=== PATIENT | male | born 1975 | race Caucasian/White ===

== ENCOUNTER 2020-10-20 20:59 | Emergency (ER) | payer OTHER, SELFPAY ==
--- NOTE | 2020-10-20 21:03 | ED.PSYCH ---
HPI - Psych General Chief Complaint: ETOH/Substance Use Stated Complaint: crisis Time Seen by Provider: 10/20/20 21:00 Source: patient and EMS Mode of arrival: EMS Limitations: no limitations History of Present Illness MD complaint: feels depressed and substance abuse Onset (ago): month(s) (3) Duration: getting worse History of same: Yes Relieving factors: none Exacerbating factors: drug use Context: recent drug abuse Associated psychiatric symptoms: depression Associated symptoms: denies other symptoms Treatments prior to arrival: none Related Data Allergies Allergy/AdvReac Type Severity Reaction Status Date / Time No Known Allergies Allergy Mild NONE Unverified 03/08/20 15:15 Review of Systems Review of Systems: Constitutional : No Fever, No Chills ENT/Mouth : No Ear Pain, No Nasal Congestion, No sore throat Eyes: No Eye Pain, No Swelling, No Redness Cardiovascular : No Chest Pain, No SOB Respiratory : No Cough, No Sputum, No Dyspnea Gastrointestinal : No Nausea, No Vomiting, No Diarrhea, No Hematochezia, No Melena Genitourinary : No Dysuria, No Urinary Frequency, No Hematuria Musculoskeletal : No Myalgias Skin : No Skin Lesions, No rash Neuro : No Weakness, No Numbness, No Paresthesias, No Dizziness, No Headache Psych : positive Anxiety, positive Depression, no SI/HI Heme/Lymph: No Lymphadenopathy Endocrine : No Polyuria, No Polydipsia All other systems reviewed and are negative [facility] Past Medical History Attestation statement: The following information was validated with the patient. Medical History No active medical problems Social History Social History (Updated 10/20/20 @ 21:20 by Ashwini Lay DO) Smoking Status: Current every day smoker Use of substances other than those prescribed or required for medical reasons: Yes Substance Use Type: Crack/Cocaine Advance Directives: No Physical Exam Vital Signs: Vital Signs: Last Vital Signs Temp 98.5 F 10/20/20 21: Pulse 116 H 10/20/20 21:22 Resp 18 10/20/20 21:22 BP 151/93 H 10/20/20 21:22 Pulse Ox 97 10/20/20 21:22 Body Mass Index 29.7 Appearance: Alert. Oriented X3. No acute distress. Eyes: Pupils equal, round and reactive to light. ENT: Pharynx normal. Neck: Normal inspection. Neck supple. CVS: Normal heart rate and rhythm. Pulses normal. Respiratory: No respiratory distress. Breath sounds normal. Abdomen: Soft and non-tender. Skin: Skin warm and dry. Normal skin color. Normal skin turgor. Extremities: No lower extremity edema. No calf ttp Neuro: Oriented X 3. No motor deficit. No sensory deficit. Psych: pos anxiety/depression, no SI/HI Course Course Course Narrative: CARE team referral to [facility], taj - can be DC at this time outpatient follow up MDM - Psych MDM Narrative Medical decision making narrative: 44 yo male with recent increasing use of cocaine and smoking crack - comes in for help with detox, will obtain DIDI and refer to care team Lab Data Labs: Lab Results 10/20/20 10/20/20 Range/Units 21:29 21:43 Urine Opiates Screen Not Detected (Not Detect) Ur Barbiturates Screen Not Detected (Not Detect) Ur Phencyclidine Scrn Not Detected (Not Detect) Ur Amphetamines Screen Not Detected (Not Detect) U Benzodiazepines Scrn Not Detected (Not Detect) Urine Cocaine Screen POSITIVE H (Not Detect) U Marijuana (THC) Screen Not Detected (Not Detect) COVID-19 ([facility]ELIC) Negative (Negative) COVID-19 Clin Com See Note Discharge Plan Discharge Clinical Impression: Cocaine abuse Patient Disposition: Home, Self-Care Instructions: Cocaine Abuse (ED) Additional Instructions: return to ED for any worsening symptoms or concerns Referrals: Rachael Salas APRN [Advanced Practice Nurse] - 2 days ( ANY PROVIDER)
[2020-10-20 21:22] VITALS: BP 151/93; BP 154/81; PULSE 116; PULSE 96; RESP 18; TEMP 36.9; O2SAT 97; O2SAT 98; BMI 29.7
[2020-10-20 21:57] LABS: COVID-19 Test Negative (Negative); IDNOW Serial# 9DD0AD1C
[2020-10-20 22:13] LABS: Amphetamine Screen Urine Not Detected (Not Detect); Barbiturates, Urine Not Detected (Not Detect); Benzodiazepines Screen Urine Not Detected (Not Detect); Cannabinoid Screen Urine Not Detected (Not Detect); Cocaine Screen Urine POSITIVE (Not Detect); Opiate Screen Urine Not Detected (Not Detect); Phencyclidine Screen Urine Not Detected (Not Detect)
--- NOTE | 2020-10-20 22:42 | MHC.CARE ---
CARE team consult requested for 44 year old male who self presented to ED seeking assessment and help for ongoing symptoms of depression and crack cocaine use. Pt reported that he relapse in June and has since been using on weekends. Pt stated that he works 50 hours per week, goes hiking and mountain biking, and stays busy doing activities with his children, however he can't stop thinking about it (crack cocaine) and he the guilt he feels is too much. Pt reported that he previously worked with a therapist through [facility] for two years, though stopped treatment approx. 8 months ago because he didn't feel that sessions via telephone were helpful (in person sessions halted at the beginning of cov- pandemic). When pt disengaged in therapy he also lost access to the psychiatrist who was prescribing his medications, so he has also been off his medications for about the same amount of time. Pt denied experiencing any thoughts of suicide or urges to harm self or others and denied recent history of such, however feels that his depression is being worsened by his crack cocaine use and wants to stop. This mortgage loan underwriter recommended that pt schedule an appt with his PCP (Olivia Estrada at [facility]) to discuss her level of comfort with prescribing the medications that pt had been prescribed through [facility] (wellbutrin and vyvanse). Pt stated that he had called [facility] to get back into treatment, learned that his previous therapist is retiring, and has not heard back from the clinic since. Pt was provided with the name and contact info for 4 local private practice therapists who accept pt's insurance ([employer]) and a referral will be completed for treatment at [facility]. This mortgage loan underwriter consulted with ED physician re: recommendations and is agreement with plan for discharge home.
== END 2020-10-20 23:09 | disposition home or self-care (01) ==
PROVIDERS: Emergency Provider Emergency Medicine; PCP Internal Medicine
DX: F33.1 Major depressive disorder, recurrent, moderate (principal); F14.10 Cocaine abuse, uncomplicated; F17.200 Nicotine dependence, unspecified, uncomplicated; Z71.6 Tobacco abuse counseling; Z20.822 Contact with and (suspected) exposure to COVID-19
CPT/HCPCS: 36415; 80307; 87635; 99284

== ENCOUNTER 2020-11-14 16:12 | Inpatient (IN) | payer OTHER, SELFPAY ==
--- NOTE | 2020-11-14 | ECG_ITS ---
Test Reason : MEDICAL CLEAR Blood Pressure : / mmHG Vent. Rate : 075 BPM Atrial Rate : 075 BPM P-R Int : 168 ms QRS Dur : 104 ms QT Int : 378 ms P-R-T Axes : 046 -32 016 degrees QTc Int : 422 ms Normal sinus rhythm Left axis deviation RSR' or QR pattern in V1 suggests right ventricular conduction delay Abnormal ECG When compared with ECG of 17-MAY-2017 16:53, RSR' pattern in V1 is now Present Referred By: Luis Oliva Electronically Signed By:DELBERT OWENS
[2020-11-14 16:35] VITALS: BP 160/80; BP 166/103; PULSE 120; PULSE 125; RESP 18; TEMP 36.6; O2SAT 97; O2SAT 98; BMI 29.6
[2020-11-14 16:57] VITALS: BP 166/103; PULSE 120; RESP 17; TEMP 36.6; O2SAT 97
--- NOTE | 2020-11-14 17:40 | PC.NURSE ---
Pt's called and stated that earlier this week PT attempted to hang himself in their home with a pair of pants. She stated that he was blue in the face but conscious. PT stated that he would not let her call am ambulance at that time. She stated that he frequently makes SI statements and will disappear for days at a time. - Malorie - [phone] PT's mother came to visit and also reported that PT attempted to hang himself a few days ago, she stated that she is very concerned about his mental health. Mom - Sarah [phone] (home) [phone] (cell)
[2020-11-14 19:11] LABS: MANUAL DIFF FLAG NO
[2020-11-14 19:13] LABS: Basophils Percent Auto 0.2 % (0-2); Eosinophils Percent Auto 0.1 % (0-4); Hemoglobin 15.4 g/dl (14.0-18.0); Imm Gran Abs Auto 0.06 X10*3/uL (0.00-0.03); Imm Gran Pct Auto 0.5 % (0.0-0.4); Lymphocytes Absolute Auto 1.6 X10*3/uL (1.2-4.9); Lymphocytes Percent Auto 12.7 % (20-40); Mean Corpuscular HGB Conc 33.5 g/dl (31.0-36.0); Mean Corpuscular Hemoglobin 30.4 pg (27.0-33.0); Mean Corpuscular Volume 90.9 fL (80-98); Mean Platelet Volume 10.3 fL (9.4-12.4); Monocytes Absolute Auto 0.9 X10*3/uL (0.1-1.2); Monocytes Percent Auto 7.2 % (2-11); Neutrophils Percent Auto 79.3 % (45-73); Platelet Count 236 X10*3/uL (160-400); Red Blood Count 5.06 X10*6/uL (4.60-5.80); Red Cell Distribution Width 14.2 % (11.0-16.0); White Blood Count 12.6 X10*3/uL (4.8-10.8)
[2020-11-14 19:28] LABS: COVID-19 Test Negative (Negative); IDNOW Serial# 08D9AD1C
--- NOTE | 2020-11-14 19:33 | PC.NURSE ---
Patient just got assessed by Care Team, disposition is Section 12 Inpatient Bed Search, patient is on phone currently, no distress reported, will continue to monitor.
[2020-11-14 19:37] LABS: Ethanol < 10 mg/dL
[2020-11-14 19:39] LABS: Alanine Aminotransferase 50 U/L (0-40); Albumin Level 4.2 g/dL (3.5-5.0); Alkaline Phosphatase 37 U/L (39-117); Anion Gap 13 (12-20); Aspartate Amino Transferase 38 U/L (5-37); Bilirubin Direct 0.3 mg/dL (0.0-0.5); Bilirubin Total 0.7 mg/dL (0.0-1.0); Blood Urea Nitrogen 16 mg/dL (9-16); Calcium 9.2 mg/dL (8.4-10.2); Carbon Dioxide 23 mmol/L (22-29); Chloride 106 mmol/L (96-108); Creatinine Clr Calc Pharmacy 63.9; Estimated Glomerular Filt Rate 48; Glucose Random 102 mg/dL (60-115); Potassium 4.2 mmol/L (3.3-5.1); Sodium 138 mmol/L (135-145); Total Protein 6.8 g/dL (6.5-8.0)
--- NOTE | 2020-11-14 19:44 | ED_ITS ---
HPI - Psych General Chief Complaint: Psychiatric Symptoms Stated Complaint: SI,SUBSTANCE ABUSE Time Seen by Provider: 11/14/20 19:53 Source: patient Mode of arrival: ambulatory Limitations: no limitations History of Present Illness HPI Narrative: Patient presents to ED for worsening depression and suicidal thoughts. Patient states life is not getting better. Patient states he is to dependent on cocaine. Patient admits to suicide attempt yesterday. MD complaint: suicidal ideation Related Data Home Medications Medication Instructions Recorded Confirmed bupropion HCl 1 tab PO DAILY 11/14/20 11/14/20 hydroxyzine HCl 1 tab PO DAILY 11/14/20 11/14/20 topiramate 1 tab PO BID 11/14/20 11/14/20 trazodone 1 tab PO BEDTIME 11/14/20 11/14/20 Allergies Allergy/AdvReac Type Severity Reaction Status Date / Time No Known Allergies Allergy Mild NONE Unverified 03/08/20 15:15 Review of Systems Review of Systems: Yes all other systems are reviewed and are negative Constitutional: Constitutional: Reports as per HPI and Reports no additional constitutional complaints Eyes: Eyes: Reports as per HPI and Reports no additional eye complaints ENT: Reports system reviewed and no additional complaints, except as documented and Reports as per HPI Cardiovascular: Cardiovascular: Reports as per HPI and Reports no additional cardiovascular complaints Respiratory: Respiratory: Reports as per HPI and Reports no additional respiratory complaints Gastrointestinal: Gastrointestinal: Reports as per HPI and Reports no additional gastrointestinal complaints Genitourinary: Genitourinary: Reports no additional male genitourinary co mplaints and Reports as per HPI Musculoskeletal: Musculoskeletal: Reports no additional musculoskeletal complaints and Reports as per HPI Neurologic: Reports system reviewed and no additional complaints, except as documented and Reports as per HPI Psychiatric: Psychiatric: Reports no additional psychiatric complaints, Reports as per HPI, Reports depression and Reports suicidal ideation [facility] Past Medical History Medical History No active medical problems Social History Social History (Updated 10/20/20 @ 21:20 by Ashwini Lay DO) Alcohol intake: current Alcohol intake frequency: 3 or more drinks per day Patient Tobacco Use Status: Current everyday Tobacco user Smoked in Last 30 Days: Yes Use of substances other than those prescribed or required for medical reasons: Yes Substance Use Type: Crack/Cocaine Last Used Substance: Hours (ago) Advance Directives: No Advance Directives Information Provided: No Healthcare Proxy: No Guardian: No Physical Exam Vital Signs: Vital Signs: Last Vital Signs Temp 97.6 F 11/14/20 19:51 Pulse 83 11/14/20 19:51 Resp 14 11/14/20 19:51 BP 135/87 11/14/20 19:51 Pulse Ox 97 11/14/20 19:51 Body Mass Index 29.6 Const: General: cooperative, healthy appearing, comfortable, no acute distress, well developed, alert and awake Orientation/consciousness: patient oriented x3 HENMT: Head: Yes normal to inspection, Yes No palpable skull fracture present, Yes normocephalic and Yes atraumatic Eyes: General: appearance normal, both eyes and all related structures Neck: Neck: Yes normal visual inspection, Yes full ROM, Yes no lymphadenopathy, Yes no meningeal signs, Yes trachea midline, Yes supple and No tender Chest: Chest palpation & inspection: normal inspection of the chest and normal palpation of entire chest wall Resp: Effort & Inspection: normal respiratory effort and able to speak in complete sentences Auscultation: clear to auscultation bilaterally Cardio: Jugular venous distension: no JVD Heart sounds: S1 normal heart sound present and S2 normal heart sound present GI: Inspection: Yes normal to inspection and No abdominal wall ecchymosis Palpation (GI): Soft to palpation, not firm, nontender, no guarding and not rigid : General: No CVA tenderness and Yes no CVA tenderness Back/Spine/Pelvis: Back: no CVA tenderness, No CVA tenderness and No back tenderness Skin: General skin exam: no rashes or lesions noted and elasticity normal Neuro: General: patient oriented x3, no meningeal signs and CN's II-XI intact bilaterally Cranial nerves: Yes CN's II-XII intact bilaterally Extrem: General: Yes normal to inspection and Yes full ROM Psych: Appearance: grossly normal, well kempt and not disheveled Course Course Course Narrative: Patient to have basic labs Reevaluation(s) Reevaluation #1: Patient was evaluated by care team consulted Lani who recommends patient be admitted for inpatient. She states patient family caught him yesterday trying to hang himself in the basement. Patient's father by similar action at the same age as patient is presently. Patient's Section [address] [facility] - Psych Lab Data Result diagrams: 11/14/20 19:04 11/14/20 19:04 Labs: Lab Results 11/14/20 11/14/20 11/14/20 Range/Units 19:04 19:04 19:04 WBC 12.6 H (4.8-10.8) X10*3/uL RBC 5.06 (4.60-5.80) X10*6/uL Hgb 15.4 (14.0-18.0) g/dl Hct 46.0 (42-52) % MCV 90.9 (80-98) fL MCH 30.4 (27.0-33.0) pg MCHC 33.5 (31.0-36.0) g/dl RDW 14.2 (11.0-16.0) % Plt Count 236 (160-400) X10*3/uL MPV 10.3 (9.4-12.4) fL Immature Gran % (Auto) 0.5 H (0.0-0.4) % Neut % (Auto) 79.3 H (45-73) % Lymph % (Auto) 12.7 L (20-40) % [place] % (Auto) 7.2 (2-11) % Eos % (Auto) 0.1 (0-4) % Baso % (Auto) 0.2 (0-2) % Lymph # (Auto) 1.6 (1.2-4.9) X10*3/uL [place] # (Auto) 0.9 (0.1-1.2) X10*3/uL Eos # (Auto) 0.0 (0.0-0.4) X10*3/uL Baso # (Auto) 0.0 (0.0-0.2) X10*3/uL Abs Immat Gran (auto) 0.06 H (0.00-0.03) X10*3/uL Absolute Neuts (auto) 10.0 H (2.0-8.3) X10*3/uL Absolute Nucleated RBC 0.000 (0.0-0.012) X10*3/uL Nucleated RBC % (auto) 0.0 (0.0-0.2) /100WBC Sodium 138 (135-145) mmol/L Potassium 4.2 (3.3-5.1) mmol/L Chloride 106 (96-108) mmol/L Carbon Dioxide 23 (22-29) mmol/L Anion Gap 13 (12-20) BUN 16 (9-16) mg/dL Creatinine 1.56 H (0.5-1.4) mg/dL Estim Creat Clear Calc 63.9 Estimated GFR 48 Random Glucose 102 (60-115) mg/dL Calcium 9.2 (8.4-10.2) mg/dL Total Bilirubin 0.7 (0.0-1.0) mg/dL Direct Bilirubin 0.3 (0.0-0.5) mg/dL AST 38 H (5-37) U/L ALT 50 H (0-40) U/L Alkaline Phosphatase 37 L (39-117) U/L Total Protein 6.8 (6.5-8.0) g/dL Albumin 4.2 (3.5-5.0) g/dL Urine Opiates Screen (Not Detect) Ur Barbiturates Screen (Not Detect) Ur Phencyclidine Scrn (Not Detect) Ur Amphetamines Screen (Not Detect) U Benzodiazepines Scrn (Not Detect) Urine Cocaine Screen (Not Detect) U Marijuana (THC) Screen (Not Detect) Ethyl Alcohol < 10 mg/dL COVID-19 ([facility]ELIC) (Negative) COVID-19 Clin Com 11/14/20 11/14/20 Range/Units 19:04 19:21 WBC (4.8-10.8) X10*3/uL RBC (4.60-5.80) X10*6/uL Hgb (14.0-18.0) g/dl Hct (42-52) % MCV (80-98) fL MCH (27.0-33.0) pg MCHC (31.0-36.0) g/dl RDW (11.0-16.0) % Plt Count (160-400) X10*3/uL MPV (9.4-12.4) fL Immature Gran % (Auto) (0.0-0.4) % Neut % (Auto) (45-73) % Lymph % (Auto) (20-40) % [place] % (Auto) (2-11) % Eos % (Auto) (0-4) % Baso % (Auto) (0-2) % Lymph # (Auto) (1.2-4.9) X10*3/uL [place] # (Auto) (0.1-1.2) X10*3/uL Eos # (Auto) (0.0-0.4) X10*3/uL Baso # (Auto) (0.0-0.2) X10*3/uL Abs Immat Gran (auto) (0.00-0.03) X10*3/uL Absolute Neuts (auto) (2.0-8.3) X10*3/uL Absolute Nucleated RBC (0.0-0.012) X10*3/uL Nucleated RBC % (auto) (0.0-0.2) /100WBC Sodium (135-145) mmol/L Potassium (3.3-5.1) mmol/L Chloride (96-108) mmol/L Carbon Dioxide (22-29) mmol/L Anion Gap (12-20) BUN (9-16) mg/dL Creatinine (0.5-1.4) mg/dL Estim Creat Clear Calc Estimated GFR Random Glucose (60-115) mg/dL Calcium (8.4-10.2) mg/dL Total Bilirubin (0.0-1.0) mg/dL Direct Bilirubin (0.0-0.5) mg/dL AST (5-37) U/L ALT (0-40) U/L Alkaline Phosphatase (39-117) U/L Total Protein (6.5-8.0) g/dL Albumin (3.5-5.0) g/dL Urine Opiates Screen Not Detected (Not Detect) Ur Barbiturates Screen Not Detected (Not Detect) Ur Phencyclidine Scrn Not Detected (Not Detect) Ur Amphetamines Screen Not Detected (Not Detect) U Benzodiazepines Scrn POSITIVE H (Not Detect) Urine Cocaine Screen POSITIVE H (Not Detect) U Marijuana (THC) Screen Not Detected (Not Detect) Ethyl Alcohol mg/dL COVID-19 ([facility]ELIC) Negative (Negative) COVID-19 Clin Com See Note Discharge Plan Discharge Clinical Impression: Depression Patient Disposition: Admitted As Inpatient Interventions: Admission Worksheet (ED) Last Done: 11/14/20 23:11
[2020-11-14 19:51] VITALS: BP 135/87; PULSE 83; RESP 14; TEMP 36.4; O2SAT 97
[2020-11-14] MEDS: buPROPion HCl XL 300 MG TAB.ER.24H PO (19:58)
[2020-11-14] MEDS: hydrOXYzine HCL 25 MG TABLET PO (19:58)
[2020-11-14 20:01] LABS: Amphetamine Screen Urine Not Detected (Not Detect); Barbiturates, Urine Not Detected (Not Detect); Benzodiazepines Screen Urine POSITIVE (Not Detect); Cannabinoid Screen Urine Not Detected (Not Detect); Cocaine Screen Urine POSITIVE (Not Detect); Opiate Screen Urine Not Detected (Not Detect); Phencyclidine Screen Urine Not Detected (Not Detect)
[2020-11-14] MEDS: LORazepam 1 MG TABLET 2 MG PO (20:04)
[2020-11-14] MEDS: Topiramate 25 MG TABLET PO (20:04)
[2020-11-15 00:10] VITALS: BP 130/78; PULSE 82; RESP 18; TEMP 36.6; O2SAT 98
[2020-11-15] MEDS: hydrOXYzine HCL 25 MG TABLET PO ×2 (01:22→08:57)
[2020-11-15] MEDS: traZODone HCL 50 MG TABLET PO ×3 (01:22→22:03)
[2020-11-15 01:45] VITALS: BMI 29.5
--- NOTE | 2020-11-15 02:20 | PC.ADMIT ---
Patient is a 44 y.o male admitted to on 11/14/20 at 2320 under CV. Patient was placed on 5 min checks for safety. Admssion completed. Patient attempted to hang self with a pair of pajamas on 11/12/20. Patient reports that he did not remember what happened and the just knew that the pants ripped and he woke up to his trying to untie the knot. Patient did not seek help on that day. Per , patient increasingly irritable, causing the conflict on their relationship. Patient also reports that he used cocaine (IV) prior to be admitted as drug of choice . Patient reports hx multiple detox and multiple IPLOC with last admission was couple years back at [facility]. Patient reports experienced PTSD symptoms but has not be treated in the past. Patient has multiple suicide attempts and his made arrangement to get his 8 year-old daughter to stay at her biological mother as his was fearing that children would be removed by DCF by patient's attempt. On admission, patient was anxious but pleasant, and cooperative. Patient also reports that his father completed suicide . Patient denied SI/HI./AH/VH. However, patient had vague HI toward the ex-'s boyfriend but refused to disclose the details but had plan. Patient was A&O x4. VSs stable but slightly elevated. Patient was orientated to the unit and unit's rules.
[2020-11-15 07:00] VITALS: BMI 30.1
[2020-11-15] MEDS: Topiramate 25 MG TABLET PO ×2 (08:57→22:01)
[2020-11-15] MEDS: buPROPion HCl XL 300 MG TAB.ER.24H PO (08:58)
[2020-11-15] MEDS: Nicotine 21 MG PATCH.TD24 TRANSDERMA (08:58)
[2020-11-15 09:04] LABS: MANUAL DIFF FLAG NO
[2020-11-15 09:06] LABS: Basophils Percent Auto 0.3 % (0-2); Eosinophils Absolute Auto 0.1 X10*3/uL (0.0-0.4); Eosinophils Percent Auto 1.5 % (0-4); Hematocrit 45.2 % (42-52); Hemoglobin 15.1 g/dl (14.0-18.0); Imm Gran Abs Auto 0.04 X10*3/uL (0.00-0.03); Imm Gran Pct Auto 0.5 % (0.0-0.4); Lymphocytes Absolute Auto 1.9 X10*3/uL (1.2-4.9); Lymphocytes Percent Auto 24.2 % (20-40); Mean Corpuscular HGB Conc 33.4 g/dl (31.0-36.0); Mean Corpuscular Hemoglobin 30.9 pg (27.0-33.0); Mean Corpuscular Volume 92.4 fL (80-98); Mean Platelet Volume 10.6 fL (9.4-12.4); Monocytes Absolute Auto 0.8 X10*3/uL (0.1-1.2); Monocytes Percent Auto 9.8 % (2-11); Neutrophils Percent Auto 63.7 % (45-73); Platelet Count 207 X10*3/uL (160-400); Red Blood Count 4.89 X10*6/uL (4.60-5.80); Red Cell Distribution Width 14.5 % (11.0-16.0); White Blood Count 7.8 X10*3/uL (4.8-10.8)
[2020-11-15 09:36] LABS: Alanine Aminotransferase 45 U/L (0-40); Albumin Level 3.8 g/dL (3.5-5.0); Albumin Level 3.9 g/dL (3.5-5.0); Alkaline Phosphatase 34 U/L (39-117); Alkaline Phosphatase 37 U/L (39-117); Anion Gap 10 (12-20); Aspartate Amino Transferase 37 U/L (5-37); Bilirubin Direct 0.2 mg/dL (0.0-0.5); Bilirubin Total 0.5 mg/dL (0.0-1.0); Blood Urea Nitrogen 18 mg/dL (9-16); Calcium 9.1 mg/dL (8.4-10.2); Carbon Dioxide 27 mmol/L (22-29); Chloride 105 mmol/L (96-108); Estimated Glomerular Filt Rate > 60; Glucose Fasting 93 mg/dL (60-99); Potassium 4.2 mmol/L (3.3-5.1); Sodium 138 mmol/L (135-145); Total Protein 6.2 g/dL (6.5-8.0)
[2020-11-15] MEDS: hydrOXYzine HCL 25 MG TABLET 50 MG PO ×2 (10:05→19:52)
--- NOTE | 2020-11-15 11:30 | HO.PSYADMNOT ---
HPI Chief Complaint: Acute psychosis Sources of Information: patient interviewed, chart reviewed and crisis/core team assessment reviewed HPI Subjective Notes: Conditional Voluntary Healthcare Proxy: No Guardianship: No Medical Problems Affecting Mental Status: No Narrative: The patient is a 44 year old male, , father of minor children, currently unemployed (he is a certified electrician constructor supervisor), with limited social support, referred from ED for exacerbation of depression, mood lability, psychosis and suicidal thoughts in the context of crack/cocaine IV use. The patient reported that he used to be highly functional but in the last months, he had several stressors, he from his girlfriend, his daughter ended back at her ex-'s in an emergency custody and financial constraints. He was abusing cocaine IV several times a day. During the intake interview, he reported that he was diagnosed with ADHD and he was receiveing Vyvanse by a [facility] prescriber until he relapsed on cocaine a few weeks ago. His last admission was at [facility] 3 weeks ago and. At this moment, he stated that he was more anxious, that usually stimulants such as caffeine or cocaine, have a paradoxical effect on him, calming him down. we discussed his diagnosis, treatment option and prognosis and he agreed on the plan below. Past Psychiatric History: His first psychiatric contact was at the age of 24, he has several trials of medications. He was admitted several times due to cocaine use disorder, mood lability and psychosis in the context of substance abuse. 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 Substance History: Cocaine for several years, he was admitted before for substance induced mood disorder. He denied opioids but there is an ED visit with heroin intoxication. Trauma History: Denies Diagnostics Vital Signs (24Hr): Vital Signs - 24 hr 11/14/20 16:35 11/14/20 16:57 11/14/20 19:51 Temperature 98 F 98 F 97.6 F Pulse Rate 120 H 120 H 83 Respiratory Rate 18 17 14 Blood Pressure 166/103 H 166/103 H 135/87 Pulse Oximetry 97 97 97 11/15/20 00:10 Temperature 97.9 F Pulse Rate 82 Respiratory Rate 18 Blood Pressure 130/78 Pulse Oximetry 98 Body Mass Index 29.5 Labs Results: 11/15/20 08:44 11/15/20 08:44 Labs: Laboratory Results - last 48 hr 11/14/20 11/14/20 11/14/20 19:04 19:04 19:04 WBC 12.6 H RBC 5.06 Hgb 15.4 Hct 46.0 MCV 90.9 MCH 30.4 MCHC 33.5 RDW 14.2 Plt Count 236 MPV 10.3 Immature Gran % (Auto) 0.5 H Neut % (Auto) 79.3 H Lymph % (Auto) 12.7 L Desha % (Auto) 7.2 Eos % (Auto) 0.1 Baso % (Auto) 0.2 Lymph # (Auto) 1.6 Desha # (Auto) 0.9 Eos # (Auto) 0.0 Baso # (Auto) 0.0 Abs Immat Gran (auto) 0.06 H Absolute Neuts (auto) 10.0 H Absolute Nucleated RBC 0.000 Nucleated RBC % (auto) 0.0 Sodium 138 Potassium 4.2 Chloride 106 Carbon Dioxide 23 Anion Gap 13 BUN 16 Creatinine 1.56 H Estim Creat Clear Calc 63.9 Estimated GFR 48 Random Glucose 102 Fasting Glucose Calcium 9.2 Total Bilirubin 0.7 Direct Bilirubin 0.3 AST 38 H ALT 50 H Alkaline Phosphatase 37 L Total Protein 6.8 Albumin 4.2 Urine Opiates Screen Ur Barbiturates Screen Ur Phencyclidine Scrn Ur Amphetamines Screen U Benzodiazepines Scrn Urine Cocaine Screen U Marijuana (THC) Screen Ethyl Alcohol < 10 COVID-19 ([facility]) COVID-19 Clin Com 11/14/20 11/14/20 11/15/20 19:04 19:21 08:44 WBC RBC Hgb Hct MCV MCH MCHC RDW Plt Count MPV Immature Gran % (Auto) Neut % (Auto) Lymph % (Auto) Desha % (Auto) Eos % (Auto) Baso % (Auto) Lymph # (Auto) Desha # (Auto) Eos # (Auto) Baso # (Auto) Abs Immat Gran (auto) Absolute Neuts (auto) Absolute Nucleated RBC Nucleated RBC % (auto) Sodium Potassium Chloride Carbon Dioxide Anion Gap BUN Creatinine Estim Creat Clear Calc Estimated GFR Random Glucose Fasting Glucose Calcium Total Bilirubin 0.5 Direct Bilirubin 0.2 AST 37 ALT 45 H Alkaline Phosphatase 34 L Total Protein 6.2 L Albumin 3.9 Urine Opiates Screen Not Detected Ur Barbiturates Screen Not Detected Ur Phencyclidine Scrn Not Detected Ur Amphetamines Screen Not Detected U Benzodiazepines Scrn POSITIVE H Urine Cocaine Screen POSITIVE H U Marijuana (THC) Screen Not Detected Ethyl Alcohol COVID-19 ([facility]) Negative COVID-19 Clin Com See Note 11/15/20 11/15/20 08:44 08:44 WBC 7.8 RBC 4.89 Hgb 15.1 Hct 45.2 MCV 92.4 MCH 30.9 MCHC 33.4 RDW 14.5 Plt Count 207 MPV 10.6 Immature Gran % (Auto) 0.5 H Neut % (Auto) 63.7 Lymph % (Auto) 24.2 Desha % (Auto) 9.8 Eos % (Auto) 1.5 Baso % (Auto) 0.3 Lymph # (Auto) 1.9 Desha # (Auto) 0.8 Eos # (Auto) 0.1 Baso # (Auto) 0.0 Abs Immat Gran (auto) 0.04 H Absolute Neuts (auto) 5.0 Absolute Nucleated RBC 0.000 Nucleated RBC % (auto) 0.0 Sodium 138 Potassium 4.2 Chloride 105 Carbon Dioxide 27 Anion Gap 10 L BUN 18 H Creatinine 1.17 Estim Creat Clear Calc 85.0 Estimated GFR > 60 Random Glucose Fasting Glucose 93 Calcium 9.1 Total Bilirubin 0.5 Direct Bilirubin AST 37 ALT 45 H Alkaline Phosphatase 37 L Total Protein 6.2 L Albumin 3.8 Urine Opiates Screen Ur Barbiturates Screen Ur Phencyclidine Scrn Ur Amphetamines Screen U Benzodiazepines Scrn Urine Cocaine Screen U Marijuana (THC) Screen Ethyl Alcohol COVID-19 ([facility]ELIC) COVID-19 Clin Com Meds/Allergies Meds Home Medications Al Hydroxide/Mg Hydroxide (Magnesium Hydrox/Alum Hydrox 30 Ml Oral.Susp) 30 ml PO Q6H PRN PRN Reason: Heartburn/Nausea Amphetamine/Dextroamphetamine (Amphetamine Mixed Salts 10 Mg Tablet) 10 mg PO BID@0800,1700 TAD Bupropion HCl (Bupropion Hcl Xl 300 Mg Tab.Er.24h) 300 mg PO DAILY TAD Last Admin: 11/15/20 08:58 Dose: 300 mg Documented by: Hydroxyzine HCl (Hydroxyzine Hcl 25 Mg Tablet) 25 mg PO DAILY COUNTS INCLUDE 234 BEDS AT THE [facility] Last Admin: 11/15/20 08:57 Dose: 25 mg Documented by: Hydroxyzine HCl (Hydroxyzine Hcl 25 Mg Tablet) 50 mg PO TID PRN PRN Reason: Anxiety Last Admin: 11/15/20 10:05 Dose: 50 mg Documented by: Magnesium Hydroxide (Milk Of Magnesia 30 Ml Oral.Susp) 30 ml PO DAILY PRN PRN Reason: Constipation Nicotine (Nicotine 21 Mg Patch.Td24) 21 mg TRANSDERMA DAILY PRN PRN Reason: smoking cessation Last Admin: 11/15/20 08:58 Dose: 21 mg Documented by: Nicotine Polacrilex (Nicotine Polacrilex 2 Mg Gum) 4 mg BUCCAL Q2H PRN PRN Reason: Nicotine Cravings Topiramate (Topiramate 25 Mg Tablet) 25 mg PO BID COUNTS INCLUDE 234 BEDS AT THE [facility] Last Admin: 11/15/20 08:57 Dose: 25 mg Documented by: Trazodone HCl (Trazodone Hcl 50 Mg Tablet) 50 mg PO BEDTIME COUNTS INCLUDE 234 BEDS AT THE [facility] Last Admin: 11/15/20 01:22 Dose: 50 mg Documented by: Trazodone HCl (Trazodone Hcl 50 Mg Tablet) 50 mg PO BEDTIME PRN PRN Reason: Insomnia Allergies Allergies Allergy/AdvReac Type Severity Reaction Status Date / Time No Known Allergies Allergy Mild NONE Unverified 03/08/20 15:15 Mental Status Exam Mental Status Exam Patient Appearance: Appropriate Patient Orientation: Person, Place, Time and Situation Level of Consciousness: Awake and Appropriate Patient Behavior: Cooperative Mood Description: Calm Affect Description: Depressed Patient Cognition Impaired: No Ability to Follow Directions: Good Speech Pattern: Clear Memory Description: Intact Hallucinations: None Delusions: Not Present Thought Process: Goal Oriented Thought Content: positive for Circumstantial Judgement: Fair Assessment & Plan Assessment & Plan (1) Cocaine dependence: Status: Acute Qualifiers: Substance use status: uncomplicated Qualified Code(s): F14.20 - Cocaine dependence, uncomplicated Code(s): F14.20 - Cocaine dependence, uncomplicated (2) Depression: Status: Acute Qualifiers: Depression Type: major depressive disorder Major depression recurrence: recurrent Active/Remission status: currently active Major depression episode severity: moderate Qualified Code(s): F33.1 - Major depressive disorder, recurrent, moderate Code(s): F32.9 - Major depressive disorder, single episode, unspecified (3) Attention deficit disorder (ADD) in adult: Status: Acute Code(s): F98.8 - Other specified behavioral and emotional disorders with onset usually occurring in childhood and adolescence Assessment and Plan: Adult male with a long history of cocaine use disorder, recently relapsed with even legal problems. He also has ADD adult and MDD. Plan: Keep Wellbutrin, Topamax. Start Adderall 10 mg po bi Gather collateral information Patient educated on: diagnosis, medication risk/benefits, substance abuse, therapeutic strategies and medical condition Informed Consent: understands Reason for continued inpatient stay Substantial Risk for: harm to self, inability to function and rapid decompensation
[2020-11-15] MEDS: Amphetamine Mixed Salts 10 MG TABLET PO (17:39)
[2020-11-15 18:00] VITALS: BP 135/80; PULSE 80; TEMP 36.9
[2020-11-16] MEDS: Amphetamine Mixed Salts 10 MG TABLET PO (08:50)
[2020-11-16] MEDS: Topiramate 25 MG TABLET PO (08:51)
[2020-11-16] MEDS: buPROPion HCl XL 300 MG TAB.ER.24H PO (08:51)
[2020-11-16] MEDS: hydrOXYzine HCL 25 MG TABLET PO (08:51)
--- NOTE | 2020-11-16 09:35 | PM.PSYDC ---
DS: Providers Provider Date of Service: 11/16/20 Date of admission: 11/14/20 23:57 Date of discharge: 11/16/20 Primary care physician: Olivia Mckeon MD Attending physician on discharge: Jacobo Mandujano DS: Diagnosis Discharge Diagnosis (1) Cocaine dependence: Status: Acute (2) Depression: Status: Acute (3) Attention deficit disorder (ADD) in adult: Status: Acute DS: Medications Discharge Medications Home Medications: Home Medications Medication Instructions Recorded Confirmed bupropion HCl 1 tab PO DAILY 11/14/20 11/14/20 hydroxyzine HCl 1 tab PO DAILY 11/14/20 11/14/20 topiramate 1 tab PO BID 11/14/20 11/14/20 trazodone 1 tab PO BEDTIME 11/14/20 11/14/20 tadalafil 20 mg PO DAILY PRN 11/15/20 11/15/20 valacyclovir 1 tab PO DAILY 11/15/20 11/15/20 Discharge Plan Discharge Patient Disposition: Xfer Other Discharge Diagnosis: Cocaine use disorder Referrals: Olivia Mckeon MD [Primary Care Provider] - 1 Week Discharge Medications: New Vyvanse 40 mg capsule 40 mg PO DAILY Qty: 30 RF: 0 Continued trazodone 50 mg tablet 1 tab PO BEDTIME RF: 0 topiramate 25 mg tablet 1 tab PO BID RF: 0 hydroxyzine HCl 25 mg tablet 1 tab PO DAILY RF: 0 bupropion HCl 300 mg tablet extended release 24 hr 1 tab PO DAILY RF: 0 valacyclovir 500 mg tablet 1 tab PO DAILY RF: 0 tadalafil 20 mg tablet 20 mg PO DAILY PRN (Reason: Erectile Dysfunction) RF: 0 Discharge Orders: Discharge Order (Routine); Ordered 11/16/20 Ordered By: Jacobo Mandujano Diet: advance to usual diet Activity on Discharge: As tolerated Stand Alone Forms: Patient Portal Discharge page Care Plan Goals: Continue treatment on rehab facility as per Section 35 Health Concerns: Continue outpatient treatment by PCP Plan of Treatment: Continue treatment as per outpatient Assessment: Adult male with cocaine use disorder, mood disorder and ADHD admitted for exacerbation of depression due to relapse on cocaine with several psychosocial stressors. His mother already section 35 and a warrant was issued. Since he is not suicidal anymore, he will be discharged to police custody. Mental Status Exam Mental Status Exam Patient Appearance: Well Grooomed Patient Orientation: Person, Place and Situation Level of Consciousness: Awake Patient Behavior: Appropriate Mood Description: Calm Affect Description: Depressed Patient Cognition Impaired: No Ability to Follow Directions: Good Speech Pattern: Clear Memory Description: Intact Hallucinations: None Delusions: Not Present Thought Process: Goal Oriented Thought Content: positive for Circumstantial Judgement: Fair Data Data Completed and Pending Completed studies during hospitalization [Text1]: 11/14/20 11/14/20 11/14/20 19:04 19:04 19:04 WBC 12.6 H RBC 5.06 Hgb 15.4 Hct 46.0 MCV 90.9 MCH 30.4 MCHC 33.5 RDW 14.2 Plt Count 236 MPV 10.3 Immature Gran % (Auto) 0.5 H Neut % (Auto) 79.3 H Lymph % (Auto) 12.7 L Piatt % (Auto) 7.2 Eos % (Auto) 0.1 Baso % (Auto) 0.2 Lymph # (Auto) 1.6 Piatt # (Auto) 0.9 Eos # (Auto) 0.0 Baso # (Auto) 0.0 Abs Immat Gran (auto) 0.06 H Absolute Neuts (auto) 10.0 H Absolute Nucleated RBC 0.000 Nucleated RBC % (auto) 0.0 Sodium 138 Potassium 4.2 Chloride 106 Carbon Dioxide 23 Anion Gap 13 BUN 16 Creatinine 1.56 H Estim Creat Clear Calc 63.9 Estimated GFR 48 Random Glucose 102 Fasting Glucose Calcium 9.2 Total Bilirubin 0.7 Direct Bilirubin 0.3 AST 38 H ALT 50 H Alkaline Phosphatase 37 L Total Protein 6.8 Albumin 4.2 Urine Opiates Screen Ur Barbiturates Screen Ur Phencyclidine Scrn Ur Amphetamines Screen U Benzodiazepines Scrn Urine Cocaine Screen U Marijuana (THC) Screen Ethyl Alcohol < 10 COVID-19 ([facility]) COVID-19 Clin Com 11/14/20 11/14/20 11/15/20 19:04 19:21 08:44 WBC RBC Hgb Hct MCV MCH MCHC RDW Plt Count MPV Immature Gran % (Auto) Neut % (Auto) Lymph % (Auto) Piatt % (Auto) Eos % (Auto) Baso % (Auto) Lymph # (Auto) Piatt # (Auto) Eos # (Auto) Baso # (Auto) Abs Immat Gran (auto) Absolute Neuts (auto) Absolute Nucleated RBC Nucleated RBC % (auto) Sodium Potassium Chloride Carbon Dioxide Anion Gap BUN Creatinine Estim Creat Clear Calc Estimated GFR Random Glucose Fasting Glucose Calcium Total Bilirubin 0.5 Direct Bilirubin 0.2 AST 37 ALT 45 H Alkaline Phosphatase 34 L Total Protein 6.2 L Albumin 3.9 Urine Opiates Screen Not Detected Ur Barbiturates Screen Not Detected Ur Phencyclidine Scrn Not Detected Ur Amphetamines Screen Not Detected U Benzodiazepines Scrn POSITIVE H Urine Cocaine Screen POSITIVE H U Marijuana (THC) Screen Not Detected Ethyl Alcohol COVID-19 ([facility]ELIC) Negative COVID-19 Clin Com See Note 11/15/20 11/15/20 08:44 08:44 WBC 7.8 RBC 4.89 Hgb 15.1 Hct 45.2 MCV 92.4 MCH 30.9 MCHC 33.4 RDW 14.5 Plt Count 207 MPV 10.6 Immature Gran % (Auto) 0.5 H Neut % (Auto) 63.7 Lymph % (Auto) 24.2 Piatt % (Auto) 9.8 Eos % (Auto) 1.5 Baso % (Auto) 0.3 Lymph # (Auto) 1.9 Piatt # (Auto) 0.8 Eos # (Auto) 0.1 Baso # (Auto) 0.0 Abs Immat Gran (auto) 0.04 H Absolute Neuts (auto) 5.0 Absolute Nucleated RBC 0.000 Nucleated RBC % (auto) 0.0 Sodium 138 Potassium 4.2 Chloride 105 Carbon Dioxide 27 Anion Gap 10 L BUN 18 H Creatinine 1.17 Estim Creat Clear Calc 85.0 Estimated GFR > 60 Random Glucose Fasting Glucose 93 Calcium 9.1 Total Bilirubin 0.5 Direct Bilirubin AST 37 ALT 45 H Alkaline Phosphatase 37 L Total Protein 6.2 L Albumin 3.8 Urine Opiates Screen Ur Barbiturates Screen Ur Phencyclidine Scrn Ur Amphetamines Screen U Benzodiazepines Scrn Urine Cocaine Screen U Marijuana (THC) Screen Ethyl Alcohol COVID-19 ([facility]ELIC) COVID-19 Clin Com DS: Summary Hospital Course Hospital Course: The patient was initially admitted for exacerbation of depression with suicidal thoughts in the context of relapse of cocaine, with several psychosocial stressors. He was re-started on his regular medications that were started at [facility], with Topamax, Wellbutrin and others. He has been stable on Vyvanse and he agreed to change to Adderall PO on the meantime, since Vyvanse is not formulary in the hospital. He attended groups, he was future oriented and able to contract for safety. His mother already filed a Section 35 and he was aware that he will be discharged to police custody since a warrant was issued. No safety issues Time spent discussing smoking cessation with patient: 3 to 10 minutes Status at Discharge Cognitive/behavioral status at discharge: Stable Functional status at discharge: independent ambulation Overall status at discharge: patient is back to baseline Time Spent with Patient Time attestation: Total time spent providing and/or coordinating discharge services: Time spent: Less than 30 minutes
[2020-11-16 10:04] VITALS: BP 140/98; PULSE 86; TEMP 36.4; O2SAT 98
--- NOTE | 2020-11-16 10:27 | PC.NURSE ---
pt discharged on a section 35. he reports readiness for substance abuse treatment. pt denies si/hi. he is taking care of adls. pt denies depression. pt is anxious about court. he was coopartive and calm during discharge process. pt did receive paperwork.
== END 2020-11-16 10:25 | disposition other institution (70) | DRG 881 ==
LOC: HO.ED 20:55 → HO.PM5 11-15 00:01
PROVIDERS: Physician Assistant; Admitting Provider Psychiatry & Neurology Psychiatry; Emergency Provider Internal Medicine; PCP Internal Medicine; Visit Provider Psychiatry & Neurology Psychiatry
DX: F32.9 Major depressive disorder, single episode, unspecified (principal); R45.851 Suicidal ideations; F14.20 Cocaine dependence, uncomplicated; F98.8 Other specified behavioral and emotional disorders with onset usually occurring in childhood and adolescence; F17.200 Nicotine dependence, unspecified, uncomplicated; Z71.6 Tobacco abuse counseling; Z20.822 Contact with and (suspected) exposure to COVID-19
CPT/HCPCS: 36415; 80053; 80076; 80307; 80320; 85025; 87635; 93005; 99285